=== PATIENT | female | born 1995 | race Caucasian/White ===

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

== ENCOUNTER 2019-07-01 13:34 | Inpatient (IN) ==
[2019-07-02] MEDS ORDERED: RINGER'S SOLUTION,LACTATED 1,000 ML IV ONE (18:13)
[2019-07-02] MEDS ORDERED: LIDOCAINE HCL 50 ML VIAL PERI PRN (18:13)
[2019-07-02] MEDS ORDERED: ONDANSETRON 4 MG TAB.RAPDIS PO PRN (18:13)
[2019-07-02] MEDS ORDERED: OXYTOCIN/DEXTROSE 5%-WATER 30 UNITS/500 ML BAG IV ONE (18:13)
[2019-07-02] MEDS ORDERED: BUTORPHANOL TARTRATE 2 MG/ML VIAL IV PRN ×2 (18:13)
[2019-07-02] MEDS ORDERED: PENICILLIN G POTASSIUM 5 MILLIONUNT in DEXTROSE 5 % IN WATER 100 ML IV ONE ×2 (18:30)
[2019-07-02] MEDS: RINGER'S SOLUTION,LACTATED 1,000 ML IV PRN (18:45)
[2019-07-02 19:05] LABS: Cocaine Ur Negative (NEGATIVE); Urine Barbiturate Negative (NEGATIVE); Urine Benzodiazepines Negative (NEGATIVE); Urine Opiates Negative (NEGATIVE); Urine PCP Negative (NEGATIVE); Urine THC Negative (NEGATIVE)
[2019-07-02] MEDS: PENICILLIN G POTASSIUM 2.5 MILLIONUNT in DEXTROSE 5 % IN WATER 100 ML IV SCH ×2 (22:52)
[2019-07-03] MEDS: RINGER'S SOLUTION,LACTATED 1,000 ML IV PRN ×2 (02:26→09:24)
[2019-07-03] MEDS: PENICILLIN G POTASSIUM 2.5 MILLIONUNT in DEXTROSE 5 % IN WATER 100 ML IV SCH ×8 (02:47→16:05)
--- NOTE | 2019-07-03 09:03 | HP ---
Chief Complaint - Chief Complaint Date of Service: 07/03/19 Time of Service: 08:55 Chief Complaint: Induction of labor History of Present Illness: 24 year old at 39w 2d who presented to labor and delivery for an elective induction of labor. She reports regular ctx. Denies vb or lof. Fetus is active. Medical History (Last Reviewed 07/03/19 @ 08:58 by Latoya Ruiz MD) Pelvic inflammatory disease (PID) (Acute) Migraine (Acute) Obesity (Acute) Rh incompatibility (Acute) Marijuana use (Acute) Patient previously counseled against marijuana use in . Recheck UDS on admission to L&D BMI 40.0-44.9, adult (Acute) Early glucola due to BMI. Pt drank her glucola today but she did not go to the lab to have it drawn Yeast vaginitis (Acute) The patient was evaluated in the emergency department last night and diagnosed with yeast vaginitis. Will treat with terazol 7 given her gestational age (Acute) Initial OB visit Pap, GC/CT collected today PNL ordered today Discussed elective IOL at 39 weeks should the patient desire Early glucola due to BMI of 40 First trimester education completed Bronchitis (Acute) Headache (Acute) Contusion (Acute) Abrasion (Acute) Internal derangement of knee (Acute) Left knee sprain (Acute) Migraine headache (Acute) Obesity (BMI 35.0-39.9 without comorbidity) (Chronic) ADHD (attention deficit hyperactivity disorder) (Chronic) Viral meningitis (Acute) Acute bacterial conjunctivitis of right eye (Acute) Upper respiratory infection (Acute) Left ankle sprain (Acute) Depression (Acute) Urinary tract bacterial infections (Acute) Fracture of toe of left foot (Acute) Back pain (Acute) UTI (urinary tract infection) (Acute) Nausea & vomiting (Acute) Generalized body aches (Acute) Otitis externa (Inactive) Pelvic pain (Inactive) Surgical History: Surgical History (Last Reviewed 07/03/19 @ 08:58 by Latoya Ruiz MD) History of tonsillectomy and adenoidectomy (Acute) Hx of tympanostomy tubes (Acute) Family History: Family History (Last Reviewed 07/03/19 @ 08:58 by Latoya Ruiz MD) Mother Multiple sclerosis Father Thyroid disease Aunt Diabetes type I Grandmother Cancer Skin Other No pertinent family history Social History: (Last Reviewed 07/03/19 @ 08:59 by Latoya Ruiz MD) Social History: adopted: No Marital status: Single household members: significant other Highest education level completed: 11th grade Service: No Tobacco: Smoking Status: Former smoker Smoking cigarettes per day: 10 Alcohol: alcohol intake: current Alcohol type: beer alcohol intake frequency: a few times a month details: none since +UPT Substance Use: substance use type: former substance user, marijuana, other details: stopped with +UPT Dietary Habits: caffeine: Yes caffeine comment: 20 oz Type: carbonated beverages Review Of Systems (GEN) - Review of Systems EENTM: Present: No Symptoms Reported Respiratory: Present: No Symptoms Reported Cardiac: Present: No Symptoms Reported Abdominal: Present: No Symptoms Reported Genitourinary: Present: Other - regular contractions Musculoskeletal: Present: No Symptoms Reported Neurological: Present: No Symptoms Reported Skin: Present: No Symptoms Reported Endocrine: Present: No Symptoms Reported Immunizations: IMMUNIZATION HX Immunizations Up to Date Yes History of Influenza Vaccine No Hx Pneumococcal Vaccination No Allergies/Adverse Reactions: Allergies Allergy/AdvReac Type Severity Reaction Status Date / Time No Known Allergies Allergy Verified 06/27/19 09:38 Home Medications: HOME MEDICATIONS Pnv No.122/Iron/Folic Acid [ Multi Tablet] 1 ea PO DAILY 07/02/19 [Last Taken 07/02/19 08:00 1 tab] Exam - Exam Vital Signs: Vital Signs - Last Taken Temp 36.1 C 07/02/19 19:23 Pulse 100 07/02/19 19:23 Resp 16 07/02/19 19:23 BP 132/76 07/02/19 19:23 Pulse Ox 97 07/02/19 19:23 Constitutional: Present: Alert, Oriented x3, Cooperative, No distress ENT Exam: Present: hearing grossly normal Eye Exam: bilateral eye: normal inspection Neck: Present: normal inspection Back Exam: Present: normal inspection, no CVA tenderness Breasts: Present: Exam deferred Respiratory: Present: lungs clear, normal breath sounds, no respiratory distress Cardiovascular/Chest: Present: regular rate, rhythm Abdomen: Present: soft, nontender, nondistended /Rectal: Present: Other - 3-4/50/-3 AROM for clear fluid Extremity: Present: non-tender, no calf tenderness Skin Exam: Present: normal color, warm/dry, no cyanosis Neurologic: Present: alert, normal mood/affect, oriented x 3 Appearance: Present: appropriate appearance, appropriate insight Eye contact: Present: cooperative, good eye contact Thoughts: Present: normal thought pattern Diagnostic Studies: Laboratory Results Urine Opiates Screen Negative (NEGATIVE) 07/02/19 18:20 Barbiturate Screen Negative (NEGATIVE) 07/02/19 18:20 Ur Phencyclidine Scrn Negative (NEGATIVE) 07/02/19 18:20 Urine Amphetamine Negative (NEGATIVE) 07/02/19 18:20 U Benzodiazepines Scrn Negative (NEGATIVE) 07/02/19 18:20 Urine Cocaine Screen Negative (NEGATIVE) 07/02/19 18:20 Urine Marijuana (THC) Negative (NEGATIVE) 07/02/19 18:20 Blood Type O Negative 07/02/19 18:25 Antibody Screen Negative 07/02/19 18:25 Assessment/Plan - Narrative Narrative: 24 year old at 39w 2d 1. Elective IOL: the patient is on pitocin. AROM done for augmentation 2. GBS positive: GBS prophylaxis heart tracing reactive and reassuring - Assessment/Plan (1) 39 weeks gestation of Problem: Acute (2) History of maternal Chlamydia infection, currently in third trimester Problem: Acute (3) Normal Papanicolaou smear Problem: Acute (4) Positive GBS test Problem: Acute (5) Rh negative status during Problem: Acute Qualifiers: Trimester: third trimester (6) Obesity Problem: Acute Qualifiers: Body mass index: BMI 40.0-44.9
[2019-07-03] MEDS ORDERED: NALOXONE HCL 1 MG/1 ML SYRG IV PRN ×2 (09:29→15:32)
[2019-07-03] MEDS ORDERED: ONDANSETRON HCL/PF 2 MG/ML VIAL IV PRN ×2 (09:29→15:32)
[2019-07-03] MEDS ORDERED: BUPIVACAINE HCL/0.9 % NACL/PF 250 ML EP PRN (09:29)
[2019-07-03] MEDS ORDERED: fentaNYL CITRATE/PF 50 MCG/ML AMPUL IT SCH ×2 (09:30→15:45)
--- NOTE | 2019-07-03 11:24 | ANES ---
Anesthesia Procedure Note Procedure Note: ANESTHESIA PROCEDURE NOTE Date of Procedure: 07/03/2019 Time of procedure: 1005. Performed by: Zaid Cornelius CRNA Admissions Evaluator: None. Preprocedure diagnosis: Active labor. Post procedure diagnosis: Same. Procedure: Insertion of labor epidural. Indications: The patient is a 24-year-old multigravida female in active labor requesting labor epidural for pain management. Findings: See below. Details of the procedure: The patient was placed in a sitting position. Back was prepped with DuraPrep. Patient was then draped in a sterile fashion. Lidocaine 1% was infiltrated to the skin and subcutaneous tissues at the level of the L3 4 interspace. The epidural space was identified using a 18-gauge Tuohy needle with [id number] technique. 20 mcg fentanyl was given intrathecally using a 27 ga. spinal needle. Epidural catheter was inserted without difficulty. Negative test dose was elicited using 5 mL of 1.5% preservative-free lidocaine plus epinephrine 1 200,000. The epidural catheter was then taped and secured in place. EBL: Minimal. Fluids: N/A. Specimen: N/A. Post procedure condition: The patient tolerated the procedure well. No complications were noted. Thank you for this consultation. Lam CRNA
--- NOTE | 2019-07-03 11:26 | ANES ---
Post Anesthesia Discharge - Transfer of Care Transfer of Care handoff given to nurse: Yes - Discharge to ASU Discharge to ASU-no complications/pt stable: Yes
--- NOTE | 2019-07-03 11:26 | ANES ---
Post Anesthesia Assessment - Vital Signs Vitals: Last Vital Signs Temp 35.6 C L 07/03/19 10:11 Pulse 77 07/03/19 10:11 Resp 18 07/03/19 10:11 BP 123/80 07/03/19 10:11 Pulse Ox 97 07/03/19 10:11 Airway Patency: Normal - Mental Status Level Of Consciousness: Awake - Pain Level Pain Score: 2 - N/V Assessment Nausea/Vomiting Presence: None Dehydration:: No
--- NOTE | 2019-07-03 11:26 | ANES ---
Anesthesia Pre Procedure Eval Vitals/Labs: Last Vital Signs Temp 35.6 C L 07/03/19 10:11 Pulse 77 07/03/19 10:11 Resp 18 07/03/19 10:11 BP 123/80 07/03/19 10:11 Pulse Ox 97 07/03/19 10:11 HOME MEDICATIONS Pnv No.122/Iron/Folic Acid [ Multi Tablet] 1 ea PO DAILY 07/02/19 [Last Taken 07/02/19 08:00 1 tab] Allergies/Adverse Reactions: Allergies Allergy/AdvReac Type Severity Reaction Status Date / Time No Known Allergies Allergy Verified 06/27/19 09:38 - Planned Procedure Planned Procedure: elective induction Medication List Reviewed:: Yes Allergies Verified: Yes Medical History (Last Reviewed 07/03/19 @ 11:24 by Vinnie Cornelius CRNA) Pelvic inflammatory disease (PID) (Acute) Migraine (Acute) Obesity (Acute) Rh incompatibility (Acute) Marijuana use (Acute) Patient previously counseled against marijuana use in . Recheck UDS on admission to L&D BMI 40.0-44.9, adult (Acute) Early glucola due to BMI. Pt drank her glucola today but she did not go to the lab to have it drawn Yeast vaginitis (Acute) The patient was evaluated in the emergency department last night and diagnosed with yeast vaginitis. Will treat with terazol 7 given her gestational age (Acute) Initial OB visit Pap, GC/CT collected today PNL ordered today Discussed elective IOL at 39 weeks should the patient desire Early glucola due to BMI of 40 First trimester education completed Bronchitis (Acute) Headache (Acute) Contusion (Acute) Abrasion (Acute) Internal derangement of knee (Acute) Left knee sprain (Acute) Migraine headache (Acute) Obesity (BMI 35.0-39.9 without comorbidity) (Chronic) ADHD (attention deficit hyperactivity disorder) (Chronic) Viral meningitis (Acute) Acute bacterial conjunctivitis of right eye (Acute) Upper respiratory infection (Acute) Left ankle sprain (Acute) Depression (Acute) Urinary tract bacterial infections (Acute) Fracture of toe of left foot (Acute) Back pain (Acute) UTI (urinary tract infection) (Acute) Nausea & vomiting (Acute) Generalized body aches (Acute) Otitis externa (Inactive) Pelvic pain (Inactive) Surgical History (Last Reviewed 07/03/19 @ 11:25 by Vinnie Cornelius CRNA) History of tonsillectomy and adenoidectomy (Acute) Hx of tympanostomy tubes (Acute) Family History (Last Reviewed 07/03/19 @ 11:25 by Vinnie Cornelius CRNA) Mother Multiple sclerosis Father Thyroid disease Aunt Diabetes type I Grandmother Cancer Skin Other No pertinent family history - Family Anesthesia History Family History:: no untoward family reactions to anesthesia - Airway/Neck/Teeth Within Normal Limits:: Yes Teeth Condition: intact Neck Exam: full range of motion Mallampatti Score: 2 Thyromental (T-M) distance: > 6 cm Mandibulo Hyoid distance: > 3 cm - Respiratory Respiratory Physical: lungs clear Smoking Status: Never smoker Sleep Apnea currently treated: No Sleep Apnea by current assessment: No - Cardiovascular Tolerate Activity: Fair Heart Sounds: S1 & S2, Regular - Gastrointestinal NPO since: MN - Anesthesia Assessment and Plan ASA Class: PS, II, E Anesthesia Type Plan: Epidural Planned difficult intubation/equipment available: No
--- NOTE | 2019-07-03 16:24 | ANES ---
Anesthesia Procedure Note Procedure Note: ANESTHESIA PROCEDURE NOTE Date of Procedure: [07/03/2019 Time of procedure: 4 PM. Performed by: BONNIE Hancock CRNA, MSN Strap Cutter: Adriana Mancilla RN. Preprocedure diagnosis: Active labor, labor pain. Post procedure diagnosis: Same. Procedure:Epidural for labor analgesia L4-5. Indications: Labor pain. Findings: There did not appear to be a dislodgment of catheter at the skin level, however, the epidural cath must not be in place as the patient has had progressive increase in pain. Details of the procedure: The patient was placed on the side of the bed in sitting positionand prepped with DuraPrep then draped in a sterile fashion. Lidocaine 1% was infiltrated to the skin and subcutaneous tissues at the level of the L4-5 interspace. An 18-gauge Touhy needle was used to approach the epidural space with loss of resistance technique. Once loss of resistance was achieved a 27-gauge spinal needle was passed through the epidural needle and CSF was contacted. After CSF returned, 20 mcg of fentanyl was injected in the spinal needle was removed the epidural catheter was then threaded approximately 4 cm in the epidural needle was removed. The catheter was taped in place and after careful aspiration 3 mL of 1.5% lidocaine with 1-200,000 epinephrine was injected without change in maternal heart rate or sensorium. . EBL: Minimal. Fluids: N/A. Specimen: N/A. Post procedure condition: The patient tolerated the procedure well with good relief. No complications were noted. Thank you for this consultation. Jorge Dumas CRNA, ARNP, MSN
--- NOTE | 2019-07-03 16:25 | ANES ---
Post Anesthesia Discharge - Transfer of Care Transfer of Care handoff given to nurse: Yes - Discharge from PACU Discharge from PACU when meets criteria: Yes - Comfortable post CSE.
--- NOTE | 2019-07-03 16:31 | ANES ---
Post Anesthesia Assessment - Vital Signs Vitals: Last Vital Signs Temp 36.1 C 07/03/19 16:26 Pulse 72 07/03/19 16:26 Resp 20 07/03/19 16:26 BP 133/78 07/03/19 16:26 Pulse Ox 98 07/03/19 16:26 Airway Patency: Normal - Mental Status Level Of Consciousness: Awake, Alert, Appropriate - Pain Level Pain Score: 0 - N/V Assessment Nausea/Vomiting Presence: None Dehydration:: No
[2019-07-03] MEDS ORDERED: BISACODYL 10 MG SUPP.RECT RC PRN (19:55)
[2019-07-03] MEDS ORDERED: GLYCERIN/WITCH HAZEL LEAF 40 APPL BOX TP PRN (19:55)
[2019-07-03] MEDS ORDERED: HYDROcodone/ACETAMINOPHEN 1 EACH TABLET PO PRN ×2 (19:55)
[2019-07-03] MEDS ORDERED: OXYTOCIN/DEXTROSE 5%-WATER 30 UNITS/500 ML BAG IV ONE (19:55)
[2019-07-03] MEDS ORDERED: BENZOCAINE/MENTHOL 81 SPRAY CAN TP PRN (19:55)
[2019-07-03] MEDS ORDERED: HYDROCORTISONE 30 APPL TUBE TP PRN (19:55)
[2019-07-03] MEDS ORDERED: SENNOSIDES 8.6 MG TABLET PO PRN (19:55)
[2019-07-03] MEDS ORDERED: diphenhydrAMINE HCL 25 MG CAPSULE PO PRN (19:55)
--- NOTE | 2019-07-03 19:55 | OR ---
Operative Report - Dictated Report Narrative: Date of delivery: 07/03/2019 Time of delivery: 1916 Gender: female weight: 3706 grams APGARS: 9 Procedure: Description of the procedure: The patient is a 24 year old at 39w 2d who presented for an elective induction of labor. She progressed to complete dilation. She delivered a viable female in direct OA presentation. Once the infant's head delivered a loose nuchal cord was noted and reduced. A shoulder dystocia was noted. Two manuevers were done and these were Edie and suprapubic pressure. The total duration of the shoulder dystocia was 34 seconds. The shoulders were delivered by gentle downward traction. The rest of the was delivered atraumatically. The cord was clamped and cut. The infant was moving all extremities after delivery. The patient was counseled regarding shoulder dystocia. There were no lacerations. Cord blood was collected. The placenta was delivered by expression and appeared intact. EBL: 100 mL Complications: none History for Definition: * The number of deliveries resulting in a live the patient experienced prior to current hospitalization * The previous delivery of live twins or any live multiple gestation is considered one live event. *If primagravida or nulliparous is documented select zero for the number of previous live births. Live Events: 1
[2019-07-03] MEDS: IBUPROFEN 800 MG TABLET PO PRN (20:44)
[2019-07-03] MEDS: DOCUSATE SODIUM 100 MG CAPSULE PO SCH (20:44)
[2019-07-04] MEDS: IBUPROFEN 800 MG TABLET PO PRN (04:46)
--- NOTE | 2019-07-04 05:56 | PN ---
Subjective - Date and Time Seen Date: 07/04/19 Time: 05:54 Subjective Narrative: Patient without complaints Objective Objective Narrative: See vital signs - Review of Systems Generalized/Overall Review: Reports: No Symptoms Reported Misc: All systems neg except as marked - Vitals Vitals: Last Vital Signs Temp 36.6 C 07/03/19 23:25 Pulse 80 07/03/19 23:25 Resp 16 07/03/19 23:25 BP 137/77 07/03/19 23:25 Pulse Ox 98 07/03/19 23:25 - Exam Constitutional: Present: Alert, Oriented x3, Cooperative, No distress Abdomen: Present: soft, nontender, nondistended - fundus is firm Extremity: Present: non-tender, no calf tenderness Skin Exam: Present: normal color, warm/dry, no cyanosis Appearance: Present: appropriate appearance, appropriate insight Eye contact: Present: cooperative, good eye contact Thoughts: Present: normal thought pattern Cauti Physician Documentation - Urinary Catheter Management Urethral ([place]) Urethral Indwelling: No Date of Insertion: 07/03/19 Time of Insertion: 10:40 Date of Removal: 07/03/19 Time of Removal: 19:00 Assessment/Plan Plan Narrative: PPD 1 s/p Doing well Discharge tomorrow - Problems/Diagnosis (1) 39 weeks gestation of Problem: Acute (2) History of maternal Chlamydia infection, currently in third trimester Problem: Acute (3) Normal Papanicolaou smear Problem: Acute (4) Positive GBS test Problem: Acute (5) Rh negative status during Problem: Acute Qualifiers: Trimester: third trimester (6) Obesity Problem: Acute Qualifiers: Body mass index: BMI 40.0-44.9
[2019-07-04] MEDS ORDERED: RHO(D) IMMUNE GLOBULIN 1,500 UNIT SYRINGE IM ONE (08:00)
[2019-07-04] MEDS: DOCUSATE SODIUM 100 MG CAPSULE PO SCH (08:06)
[2019-07-05] MEDS: DOCUSATE SODIUM 100 MG CAPSULE PO SCH (03:14)
[2019-07-05 07:31] VITALS: BP 140/76
--- NOTE | 2019-07-05 08:45 | PN ---
Subjective - Date and Time Seen Date: 07/05/19 Time: 08:43 Subjective Narrative: Patient without complaints Objective Objective Narrative: See vital signs - Review of Systems Generalized/Overall Review: Reports: No Symptoms Reported Misc: All systems neg except as marked - Vitals Vitals: Last Vital Signs Temp 36.2 C 07/05/19 07:24 Pulse 92 07/05/19 07:24 Resp 16 07/05/19 07:24 BP 140/76 H 07/05/19 07:24 Pulse Ox 98 07/05/19 07:24 - Exam Constitutional: Present: Alert, Oriented x3, Cooperative, No distress ENT Exam: Present: hearing grossly normal Abdomen: Present: soft, nontender, nondistended - fundus is firm Extremity: Present: non-tender, no calf tenderness Skin Exam: Present: normal color, warm/dry, no cyanosis Neurologic: Present: alert, normal mood/affect Appearance: Present: appropriate appearance, appropriate insight Eye contact: Present: cooperative, good eye contact, normal speech Thoughts: Present: normal thought pattern Cauti Physician Documentation - Urinary Catheter Management Urethral ([place]) Urethral Indwelling: No Date of Insertion: 07/03/19 Time of Insertion: 10:40 Date of Removal: 07/03/19 Time of Removal: 19:00 Assessment/Plan Plan Narrative: PPD 2 s/p Doing well Discharge home. Discharge instructions given Follow-up in 6 weeks or sooner for any other concerns - Problems/Diagnosis (1) 39 weeks gestation of Problem: Acute (2) History of maternal Chlamydia infection, currently in third trimester Problem: Acute (3) Normal Papanicolaou smear Problem: Acute (4) Positive GBS test Problem: Acute (5) Rh negative status during Problem: Acute Qualifiers: Trimester: third trimester (6) Obesity Problem: Acute Qualifiers: Body mass index: BMI 40.0-44.9
== END 2019-07-05 11:20 | disposition home or self-care (01) | DRG 807 ==
LOC: OB 07-02 18:07
PROVIDERS: ADMIT Obstetrics & Gynecology; ATTEND Obstetrics & Gynecology
CPT/HCPCS: 59025; 80307; 85460; 86850; J2790